=== PATIENT | male | born 1975 | race Caucasian/White ===

== ENCOUNTER 2016-08-27 19:41 | Emergency (ER) | payer OTHER ==
[~2016-08-27] VITALS: Ht 160 cm; Wt 46.0 kg
[~2016-08-27 19:41] MED LIST: ALLEGRA ALLERG180 MG PO; AMBIEN10 MG PO; ATIVAN2 MG/ML IV; Allegra PO; Ambien PO; Ativan PO; Calan PO; Colace PO; Coumadin,Jantoven PO; DEPAKOTE ER (E500 M1 PO; DILANTIN100 MG PO; Depakote PO; FEVERALL325 M1 RC; FLONASE16 G1 BOTH NARES; Feosol PO; Flonase BOTH NARES; Milk Of Magnesia,MOM PO; Motrin PO; PROTONIX40 MG PO; SEROQUEL200 MG PO; THERAGRAN1 TABLET PO; TYLENOL650 MG/20. PO; Tylenol Liquid PO; Tylenol PR; XANAX0.5 MG PO; Xanax PO; [UNRECOGNIZED DRUG - OTHER] TP
[2016-08-27 20:11] VITALS: BP 127/88
== END 2016-08-27 21:37 | disposition home or self-care (01) ==
LOC: EME 19:41
DX: R04.0 Epistaxis (principal); R56.9 Unspecified convulsions; G80.9 Cerebral palsy, unspecified; Z86.718 Personal history of other venous thrombosis and embolism
CPT/HCPCS: 99281; 99284; J1630; J2250

== ENCOUNTER → 2018-01-10 | Outpatient (CLI) | payer OTHER ==
[~2018-01-10] MED LIST changes: +A&D OINTMENT60 GM TP; +ACETAMINOPHEN650 M4 PR; +ATIVAN1 MG PO; +CHLORPROMAZINE100 MG PO; +COLACE100 MG PO; +DEPAKOTE ER250 MG PO; +DEPAKOTE ER500 MG PO; -FEVERALL325 M1 RC; +PROMETHEGAN25 MG PR; +RISAMINE OINTM113 GM TP; +RISPERDAL1 MG PO; +RISPERDAL2 MG PO; +SIMETHICONE80 MG PO; +SINGULAIR10 MG PO; +ZOFRAN4 MG PO
[2018-01-10 13:42] LABS: HEMATOCRIT 25.9 % (38.0-50.0); MCV 71.5 FL (86-99)
== END | disposition home or self-care (01) ==
LOC: AMB 11:24
PROVIDERS: Anesthesiology
DX: D64.9 Anemia, unspecified (principal); K92.1 Melena; K22.10 Ulcer of esophagus without bleeding; Z53.09 Procedure and treatment not carried out because of other contraindication; R63.4 Abnormal weight loss; K92.0 Hematemesis; Z68.1 Body mass index [BMI] 19.9 or less, adult; R13.10 Dysphagia, unspecified; G40.909 Epilepsy, unspecified, not intractable, without status epilepticus; Z80.0 Family history of malignant neoplasm of digestive organs; Z99.3 Dependence on wheelchair; Z88.8 Allergy status to other drugs, medicaments and biological substances
CPT/HCPCS: 85014; 85018; 88305; 88312; 88341 TC; 88342 TC; J3010

== ENCOUNTER 2018-02-06 15:41 | Inpatient (IN) | payer OTHER ==
[~2018-02-06] VITALS: Ht 167.6 cm; Wt 49.1 kg
[~2018-02-06 15:41] MED LIST changes: -ALLEGRA ALLERG180 MG PO; +ALLEGRA-D 241 TABLET PO; +PAIN RELIE160 MG/52 PO; -TYLENOL650 MG/20. PO
[2018-02-06 17:39] LABS: ALBUMIN 3.1 g/dL (3.2-4.8); BASOPHIL (%) 0.5 % (0-1); EOSINOPHIL (%) 2.6 % (0-5); EOSINOPHIL COUNT 0.2 K/uL (0-0.3); HEMATOCRIT 23.3 % (38.0-50.0); IMMATURE GRANULOCYTE (%) 0.4 % (0.0-0.7); LYMPHOCYTE (%) 19.8 % (15-42); LYMPHOCYTE COUNT 1.6 K/uL (1.0-2.8); MCH 18.3 PG (29.0-34.0); MCHC 26.6 G/DL (30.0-36.0); MCV 68.7 FL (86-99); MONOCYTE (%) 14.9 % (3-12); MONOCYTE COUNT 1.2 K/uL (0-0.8); NEUTROPHIL (%) 61.8 % (45-76); PLATELET COUNT 591 K/uL (156-360); RBC DIS.WIDTH-CV 16.7 % (11.8-14.6); RBC DIS.WIDTH-SD 41.1 % (39-53); RED BLOOD COUNT 3.39 M/uL (4.00-5.50)
[2018-02-06 17:40] LABS: HEMOGLOBIN 6.2 G/DL (12.5-16.6)
[2018-02-06 17:42] LABS: TOTAL PROTEIN 7.6 g/dL (6.4-8.3)
[2018-02-06 17:43] LABS: TOTAL BILIRUBIN 0.1 mg/dL (0.0-1.0)
[2018-02-06 17:45] LABS: ALKALINE PHOSPHATASE 79 IU/L (3-129)
[2018-02-06 17:47] LABS: AST (GOT) 23 IU/L (2-34); DIRECT BILIRUBIN 0.1 mg/dL (0.0-0.3)
[2018-02-06 17:48] LABS: ALT (GPT) 13 IU/L (3-49); LIPASE 41 U/L (1.0-51.0)
[2018-02-06 17:51] LABS: INTER. NORMALIZED RATIO 1.1
[2018-02-06 17:52] LABS: TROP-I INTERPRETATION NEGATIVE; TROPONIN-I < 0.01 ng/mL (0.0-0.30)
[2018-02-06 17:53] LABS: PTT 20.4 SEC (25-37)
[2018-02-06 18:39] VITALS: BP 103/70
[2018-02-06 18:53] VITALS: BP 108/67
[2018-02-06 20:57] VITALS: BP 118/74
[2018-02-06 21:04] VITALS: BP 123/73
[2018-02-06 22:55] LABS: TRANSFERRIN (TIBC) 298.8 mg/dL (215-380)
[2018-02-06 22:56] LABS: IRON < 10 MCG/DL (35-150); TRANSFERRIN SATUR. 3 % (20-55)
[2018-02-06 23:53] VITALS: BP 114/67
[2018-02-07 00:53] VITALS: BP 127/72
[2018-02-07 01:53] VITALS: BP 120/69
[2018-02-07 03:03] LABS: HEMATOCRIT 28.7 % (38.0-50.0); HEMOGLOBIN 8.4 G/DL (12.5-16.6); MCV 72.5 FL (86-99)
[2018-02-07 06:00] VITALS: BP 129/74
[2018-02-07 09:15] LABS: HEMATOCRIT 29.2 % (38.0-50.0); HEMOGLOBIN 8.6 G/DL (12.5-16.6); MCV 71.9 FL (86-99)
[2018-02-07 09:42] LABS: CHLORIDE 107 MEQ/L (99-109); CREATININE 0.5 MG/DL (0.6-1.3); GFR ESTIMATE (CALCULATED) > 59 mL/min/ (58.99-99999); POTASSIUM 4.2 MEQ/L (3.7-5.4); SODIUM 138 MEQ/L (136-147); UREA NITROGEN (BUN) 4 mg/dL (9-23)
[2018-02-07 09:50] LABS: GLUCOSE 76 mg/dL (70-99)
[2018-02-07 11:24] VITALS: BP 141/81
[2018-02-07 14:56] LABS: HEMATOCRIT 30.6 % (38.0-50.0); HEMOGLOBIN 8.8 G/DL (12.5-16.6); MCV 72.9 FL (86-99)
[2018-02-07 16:53] VITALS: BP 170/93
[2018-02-07 20:00] VITALS: BP 155/88
[2018-02-07 20:55] LABS: HEMATOCRIT 28.7 % (38.0-50.0); HEMOGLOBIN 8.2 G/DL (12.5-16.6); MCV 72.1 FL (86-99)
[2018-02-08] VITALS: BP 136/82
[2018-02-08 07:31] VITALS: BP 178/90
[2018-02-08 07:48] VITALS: BP 178/90
[2018-02-08 10:28] LABS: HEMATOCRIT 31.3 % (38.0-50.0); MCH 20.9 PG (29.0-34.0); MCHC 28.8 G/DL (30.0-36.0); MCV 72.6 FL (86-99); PLATELET COUNT 468 K/uL (156-360); RBC DIS.WIDTH-CV 18.7 % (11.8-14.6); RBC DIS.WIDTH-SD 48.6 % (39-53); RED BLOOD COUNT 4.31 M/uL (4.00-5.50); WHITE BLOOD COUNT 7.6 K/uL (4.1-10.2)
[2018-02-08 16:17] VITALS: BP 118/95
[2018-02-09 00:20] VITALS: BP 124/79
[2018-02-09 07:07] LABS: HEMATOCRIT 31.9 % (38.0-50.0); MCH 20.6 PG (29.0-34.0); MCHC 28.2 G/DL (30.0-36.0); PLATELET COUNT 477 K/uL (156-360); RBC DIS.WIDTH-CV 19.7 % (11.8-14.6); RBC DIS.WIDTH-SD 51.3 % (39-53); RED BLOOD COUNT 4.37 M/uL (4.00-5.50); WHITE BLOOD COUNT 8.7 K/uL (4.1-10.2)
[2018-02-09 07:43] VITALS: BP 131/69
[2018-02-09] MEDS ORDERED: PROTONIX40 MG PO (11:02)
== END 2018-02-09 12:36 | disposition home or self-care (01) | DRG 812 ==
LOC: EME 15:41 → EDOF 19:51 → 5SOUTH 19:51 → ENRESERV 19:57 → 5SOUTH 21:12
PROVIDERS: Emergency Medicine; Hospitalist; Physician Assistant
PROC: 30233N1 Transfusion of Nonautologous Red Blood Cells into Peripheral Vein, Percutaneous Approach (ICD-10-PCS; principal; 2018-02-06)
DX: D62 Acute posthemorrhagic anemia (principal); K92.0 Hematemesis; G40.909 Epilepsy, unspecified, not intractable, without status epilepticus; F72 Severe intellectual disabilities; G80.9 Cerebral palsy, unspecified; R65.10 Systemic inflammatory response syndrome (SIRS) of non-infectious origin without acute organ dysfunction; F63.9 Impulse disorder, unspecified; D68.8 Other specified coagulation defects; K22.10 Ulcer of esophagus without bleeding; E16.2 Hypoglycemia, unspecified; K59.00 Constipation, unspecified; K21.0 Gastro-esophageal reflux disease with esophagitis; F41.9 Anxiety disorder, unspecified; Z86.72 Personal history of thrombophlebitis; Z80.0 Family history of malignant neoplasm of digestive organs; Z87.11 Personal history of peptic ulcer disease; Z99.3 Dependence on wheelchair
CPT/HCPCS: 36415; 74176; 80048; 80053; 80061; 80076; 80164; 82150; 82948; 83540; 83605; 83690; 83880; 84443; 84466; 84484; 85014; 85018; 85025; 85025 91; 85027; 85610; 85730; 86850; 86900; 86901; 86920; 99281; 99285; C9113; J0696; J1200; J1630; J2060; J2250; J7030; J7042; P9016